=== PATIENT | female | born 1960 | race Caucasian/White ===

== ENCOUNTER 2016-10-22 17:25 | Emergency (ER) | payer OTHER ==
[~2016-10-22] VITALS: Ht 165.1 cm; Wt 77.1 kg
[2016-10-22] MEDS ORDERED: FAMOTIDINE 20 MG/2 ML VIAL IVP ONE (17:30)
[2016-10-22] MEDS ORDERED: methylPREDNISolone SOD SUCC PF 125 MG/2 ML VIAL. IV ONE (17:30)
[2016-10-22] MEDS ORDERED: diphenhydrAMINE 50 MG/ML VIAL IVP ONE (17:30)
--- NOTE | 2016-10-22 17:30 | NUR ---
pepcid was given IV per the left AC IV site not the rt --only one IV site was created.
--- NOTE | 2016-10-22 17:32 | PHYS DOC ---
Adult General Chief Complaint Chief Complaint: ALLERGIC REACTION HPI HPI Patient is a 55-year-old female brought to the ED by EMS with the complaint of allergic reaction. The patient felt wheezy and tight, her lips and inside of her mouth felt like they were itchy and swelling, she was sneezing, her throat felt like it was tightening. Her eyes were itching in the inside of her ears were itching. This all started just as she ate the last almond, she was eating almonds for a snack. She took a Benadryl and after 20-30 minutes was not getting any relief so she called 911. Paramedics administered epinephrine 0.3 mg IM, and a albuterol breathing treatment. Patient was feeling better by the time she arrived. Patient states she has never had a reaction like this before. 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 She saw an receiver stocker and ended up taking Zyrtec and Zantac each twice a day for a while, her symptoms got calms down and now she still takes one Zyrtec daily but no Zantac. They never really determined for sure what she was allergic to at that time. She does have a history of a seafood allergy determined by allergy testing but she has not eaten any seafood. Today she ate pancakes for breakfast, they had a late breakfast so she had not had lunch, just some almonds for a snack. 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 This was discovered because she was hospitalized with abdominal pain and sounds like she was given some prophylactic subcutaneous heparin, a few days later she developed a vasculitis and ended up in the ICU for 5 days. Review of Systems Review of Systems Constitutional: Denies fever or chills [] Eyes: Eyes were itchy at the onset of this episode HENT: Positive nasal congestion and itchy nose with this episode Respiratory: As in history of present illness Cardiovascular: Denies chest pain GI: Denies abdominal pain, nausea, vomiting, bloody stools or diarrhea [] Integument: Denies rash or skin lesions , no redness or urticaria Physical Exam Physical Exam Constitutional: Well developed, well nourished, alert, mentating normally, no stridor, no respiratory distress. She does appear slightly shaky and anxious. HENT: Normocephalic, atraumatic, bilateral external ears normal, no facial or oral swelling, oropharynx moist, no oral exudates, nose normal. [] Eyes: conjunctiva normal, no discharge. [] Neck: Normal range of motion, no stridor. [] Cardiovascular:Heart rate regular rhythm, no murmur [] Lungs & Thorax: Bilateral breath sounds clear to auscultation , good air movement throughout, no wheezing heard Skin: Warm, no erythema, no rash. No urticarial lesions. Slightly diaphoretic. Extremities: No tenderness, no cyanosis, no clubbing, ROM intact, no edema. [] Neurologic: Alert and oriented X 3, normal motor function, normal sensory function, no focal deficits noted. [] EKG EKG [] Radiology/Procedures Radiology/Procedures [] Course & Med Decision Making Course & Med Decision Making Pertinent Labs and Imaging studies reviewed. (See chart for details) 55-year-old female presented by EMS with what sounds like some type of allergic reaction/anaphylaxis. She has not had this before. She was treated by oral Benadryl at home, by EMS with epinephrine 0.3 mg IM and albuterol nebulized treatment. I ordered additional IV Benadryl, IV Pepcid, and IV Solu-Medrol on arrival. 1744 recheck patient. She has calmed down a little bit. She is mentating normally. Good color, skin is dry. She is not dyspneic. No stridor. No evidence of any rash, no wheezing. I advised the patient we will observe her in the ED for at least an hour. She is agreeable to that.1800 I turned over the patient at shift change to Dr. Mendoza, who will observe her and if she remains clear will be able to discharge her with appropriate medications and follow-up plan. --- I assumed care of the patient at the end of Dr. Jean's shift. Patient continued to improve with no recurrence of airway symptoms. She was resting comfortably throughout my care. She was observed for over 90 minutes. She was comfortable with discharge home. Gave prescriptions for EpiPen to use as needed for recurrence of anaphylactic symptoms. Also gave prescription for prednisone and advised every 6 hours use Benadryl and daily use of Pepcid for the next 5 days. Follow-up with receiver stocker or PCP within the next week. Return to the emergency department for severe shortness of breath, face/tongue/lip swelling, need to use EpiPen, any otherwise worsening condition. Discharged home in stable condition. Chery Mendoza MD [] Dragon Disclaimer Dragon Disclaimer This chart was dictated in whole or in part using Voice Recognition software in a busy, high-work load, and often noisy Emergency Department environment. It may contain unintended and wholly unrecognized errors or omissions. Departure Departure: Impression: Primary Impression: Allergic reaction Disposition: HOME, SELF-CARE Patient Instructions: Anaphylactic Reaction, [id number] Additional Instructions: You were seen in the emergency department today for allergic reaction. Symptoms improved with treatment here. It's not clear what caused this reaction. Please take prednisone for the next 5 days. Also take [id number] Benadryl every 6 hours and Pepcid daily. Follow-up with your receiver stocker within the next week if possible. Return to the emergency department for severe shortness of breath, face/tongue/lip swelling, any otherwise worsening condition. Scripts Epinephrine (EPINEPHRINE) 0.3 Mg/0.3 Ml Auto.injct 0.3 MG IJ 1X, #2 SYR Prov: CHERY MENDOZA MD 10/22/16 Prednisone (PREDNISONE) 20 Mg Tablet 20 MG PO BID for allergic reaction for 5 Days, #10 TAB Prov: ELAINE JEAN MD 10/22/16 ELAINE JEAN MD October 22, 2016 17:31 CHERY MENDOZA MD October 22, 2016 18:55
[2016-10-22] MEDS ORDERED: PRED20TA PO (18:16)
[2016-10-22] MEDS ORDERED: EPIN0.3A8 IJ (18:54)
[2016-10-22 19:05] VITALS: BP 119/69
--- NOTE | 2016-10-22 19:05 | NUR ---
IV catheter was discontinued with catheter intact and no complication--pressure dressing applied.
== END 2016-10-22 19:05 | disposition home or self-care (01) ==
LOC: ER 17:25
DX: T78.1XXA Other adverse food reactions, not elsewhere classified, initial encounter (principal); R06.2 Wheezing; X58.XXXA Exposure to other specified factors, initial encounter
CPT/HCPCS: 96374; 96375; 99284; J1200; J2930; S0028

== ENCOUNTER 2019-02-09 12:51 | Emergency (ER) | payer OTHER ==
[~2019-02-09 12:51] MED LIST: EPIN0.3A8 IJ; PRED20TA PO
[2019-02-09 13:00] VITALS: BP 172/92
[2019-02-09] MEDS ORDERED: IV NORMAL SALINE 1,000ML 1,000 ML IV ONE (13:15)
[2019-02-09] MEDS ORDERED: METOCLOPRAMIDE HCL 10 MG/2 ML VIAL. IV ONE (13:30)
[2019-02-09] MEDS ORDERED: diphenhydrAMINE 50 MG/ML VIAL IVP ONE (13:30)
[2019-02-09] MEDS ORDERED: PROCHLORPERAZINE 10 MG/2 ML VIAL. IV ONE (13:30)
--- NOTE | 2019-02-09 13:41 | ED.ADGEN ---
Past History Past Medical History: Migraines Past Surgical History: Appendectomy, Cholecystectomy, Tubal ligation Alcohol Use: None Drug Use: None Adult General Chief Complaint Chief Complaint Headache HPI HPI Patient is a 58-year-old female with history of chronic recurrent migraines who presents with typical left-sided retro-orbital headache beginning earlier today. Headache is described as throbbing in migrates posteriorly. It is rated moderate to severe and associated with light sensitivity, nausea and vomiting. Patient has taken Excedrin Migraine without relief. Denies known trigger. No recent illnesses, missed medications, or sleep changes. Patient's last migraine was a few weeks ago. States headaches are normally well controlled..[] Review of Systems Review of Systems Review symptoms as per history of present illness. All other review symptoms are negative. All other systems were reviewed and found to be within normal limits, except as documented in this note. Current Medications Current Medications Current Medications Medications (Trade) Dose Ordered Sig/Maame Start Time Stop Time Status Last Admin Dose Admin Diphenhydramine HCl (Benadryl) 50 mg 1X ONCE 02/09/19 13:30 02/09/19 13:31 DC 02/09/19 13:27 50 MG Metoclopramide HCl (Reglan Vial) 10 mg 1X ONCE 02/09/19 13:30 02/09/19 13:31 DC 02/09/19 13:27 10 MG Prochlorperazine Edisylate (Compazine) 10 mg 1X ONCE 02/09/19 13:30 02/09/19 13:31 DC 02/09/19 13:27 10 MG Sodium Chloride 1,000 ml @ 1,000 mls/hr 1X ONCE 02/09/19 13:15 02/09/19 14:14 DC 02/09/19 13:30 1,000 MLS/HR Allergies Allergies Allergies Coded Allergies Type Severity Reaction Last Updated Verified Iodinated Contrast Media - Oral and Allergy Intermediate 10/22/16 Yes heparin Allergy Mild 10/22/16 Yes codeine Adverse Reaction Intermediate 10/22/16 Yes Physical Exam Physical Exam Constitutional: Well developed, well nourished, moderate distress secondary to pain.. [] HENT: Normocephalic, atraumatic, bilateral external ears normal, oropharynx moist, no oral exudates, nose normal. [] Eyes: PERRLA, EOMI, conjunctiva normal, no discharge. [] Neck: Normal range of motion, no tenderness, supple. [] Cardiovascular:Heart rate regular rhythm, no murmur [] Lungs & Thorax: Bilateral breath sounds clear to auscultation [] Extremities: No tenderness. [] Neurologic: Alert and oriented X 3, normal motor function, normal sensory function, no focal deficits noted. [] Psychologic: Affect normal, judgement normal, mood normal. [] Current Patient Data Vital Signs Vital Signs Date Time Temp Pulse Resp B/P (MAP) Pulse Ox O2 Delivery O2 Flow Rate FiO2 02/09/19 13:00 77 18 93 Room Air Lab Results Laboratory Tests Test 02/09/19 13:24 White Blood Count 8.8 x10^3/uL (4.0-11.0) Red Blood Count 5.11 x10^6/uL (3.50-5.40) Hemoglobin 15.3 g/dL (12.0-15.5) Hematocrit 45.0 % (36.0-47.0) Mean Corpuscular Volume 88 fL (79-100) Mean Corpuscular Hemoglobin 30 pg (25-35) Mean Corpuscular Hemoglobin Concent 34 g/dL (31-37) Red Cell Distribution Width 13.4 % (11.5-14.5) Platelet Count 286 x10^3/uL (140-400) Neutrophils (%) (Auto) 68 % (31-73) Lymphocytes (%) (Auto) 23 % (24-48) L Monocytes (%) (Auto) 6 % (0-9) Eosinophils (%) (Auto) 2 % (0-3) Basophils (%) (Auto) 1 % (0-3) Neutrophils # (Auto) 6.0 x10^3uL (1.8-7.7) Lymphocytes # (Auto) 2.0 x10^3/uL (1.0-4.8) Monocytes # (Auto) 0.5 x10^3/uL (0.0-1.1) Eosinophils # (Auto) 0.2 x10^3/uL (0.0-0.7) Basophils # (Auto) 0.1 x10^3/uL (0.0-0.2) Sodium Level 141 mmol/L (136-145) Potassium Level 3.9 mmol/L (3.5-5.1) Chloride Level 103 mmol/L (98-107) Carbon Dioxide Level 29 mmol/L (21-32) Anion Gap 9 (6-14) Blood Urea Nitrogen 14 mg/dL (7-20) Creatinine 1.0 mg/dL (0.6-1.0) Estimated GFR (Cockcroft-Gault) 57.1 Glucose Level 103 mg/dL (70-99) H Calcium Level 9.0 mg/dL (8.5-10.1) EKG EKG ] Radiology/Procedures Radiology/Procedures [] Course & Med Decision Making Course & Med Decision Making Pertinent Labs and Imaging studies reviewed. (See chart for details) [Acute onset migraine headache without vomiting. Typical migraine cocktail initiated. Symptoms improved in the ED with treatment.] Final Impression Final Impression [#1 recurrent migraine headache] Dragon Disclaimer Dragon Disclaimer This electronic medical record was generated, in whole or in part, using a voice recognition dictation system. NICHOLAS CASTRO DO Feb 09, 2019 13:41
[2019-02-09 13:42] LABS: GFR 57.1; POTASSIUM 3.9 mmol/L (3.5-5.1)
[2019-02-09 13:43] LABS: BASO # 0.1 x10^3/uL (0.0-0.2); BASO % 1 % (0-3); EOS # 0.2 x10^3/uL (0.0-0.7); EOS % 2 % (0-3); HEMOGLOBIN 15.3 g/dL (12.0-15.5); LYMPH % 23 % (24-48); MEAN CORPUSCULAR HEMOGLOBIN 30 pg (25-35); MEAN CORPUSCULAR HGB CONC 34 g/dL (31-37); MEAN CORPUSCULAR VOLUME 88 fL (79-100); MONO # 0.5 x10^3/uL (0.0-1.1); MONO % 6 % (0-9); NEUT % 68 % (31-73); PLATELET COUNT 286 x10^3/uL (140-400); RED BLOOD COUNT 5.11 x10^6/uL (3.50-5.40); RED CELL DISTRIBUTION WIDTH 13.4 % (11.5-14.5); WHITE BLOOD COUNT 8.8 x10^3/uL (4.0-11.0)
== END 2019-02-09 15:05 | disposition home or self-care (01) ==
LOC: ER 12:51
DX: G43.909 Migraine, unspecified, not intractable, without status migrainosus (principal); R11.2 Nausea with vomiting, unspecified; Z88.5 Allergy status to narcotic agent; Z88.8 Allergy status to other drugs, medicaments and biological substances; Z91.041 Radiographic dye allergy status
CPT/HCPCS: 36415; 80048; 85025; 96361; 96374; 96375; 99285; J0780; J1200; J2765; J7030

== ENCOUNTER 2019-07-23 12:50 | Emergency (ER) | payer OTHER ==
[~2019-07-23] VITALS: Ht 165.1 cm; Wt 79.5 kg
[2019-07-23] MEDS ORDERED: methylPREDNISolone SOD SUCC PF 125 MG/2 ML VIAL. IV ONE (13:15)
[2019-07-23] MEDS ORDERED: diphenhydrAMINE 50 MG/ML VIAL IVP ONE (13:15)
[2019-07-23] MEDS ORDERED: FAMOTIDINE 20 MG/2 ML VIAL IVP ONE (13:15)
[2019-07-23] MEDS ORDERED: IPRATRPIUM/ALBUTEROL 0.5/2.5MG 3 ML NEBU. NEB ONE (14:00)
[2019-07-23 15:22] VITALS: BP 132/79
--- NOTE | 2019-07-23 15:51 | PHYS DOC ---
Past History Past Medical History: No Pertinent History Past Surgical History: Appendectomy, Cholecystectomy Alcohol Use: None Drug Use: None Adult General Chief Complaint Chief Complaint: ALLERGIC REACTION HPI HPI Patient is a 58-year-old female who presented to ER today for evaluation of allergic reaction to the medication she was given today in her doctor office. Patient went to see her doctor today for annual routine allergy shot. Patient was given the shot in the clinic, then she was arriving to see her dentist, on the way to her dentist clinic , she started having trouble breathing , feel like her throat is swelling up , itching sensation on her trunk so she came here for evaluation. Review of Systems Review of Systems Constitutional: Denies fever or chills [] Eyes: Denies change in visual acuity, redness, or eye pain [] HENT: Denies nasal congestion or sore throat [] Respiratory: Denies cough , positive for shortness of breath [] Cardiovascular: No additional information not addressed in HPI [] GI: Denies abdominal pain, nausea, vomiting, bloody stools or diarrhea [] : Denies dysuria or hematuria [] Musculoskeletal: Denies back pain or joint pain [] Integument: Denies rash or skin lesions . Positive for itching. Neurologic: Denies headache, focal weakness or sensory changes [] Endocrine: Denies polyuria or polydipsia [] All other systems were reviewed and found to be within normal limits, except as documented in this note. Current Medications Current Medications Current Medications Medications (Trade) Dose Ordered Sig/Maame Start Time Stop Time Status Last Admin Dose Admin Albuterol/ Ipratropium (Duoneb) 3 ml 1X ONCE 07/23/19 14:00 07/23/19 14:02 DC 07/23/19 14:06 3 ML Diphenhydramine HCl (Benadryl) 50 mg 1X ONCE 07/23/19 13:15 07/23/19 13:16 DC 07/23/19 13:02 50 MG Epinephrine HCl (EPINEPHrine AMPULE) 0.3 mg 1X ONCE 07/23/19 13:30 07/23/19 13:31 DC 07/23/19 13:34 0.3 MG Famotidine (Pepcid Vial) 20 mg 1X ONCE 07/23/19 13:15 07/23/19 13:16 DC 07/23/19 13:02 20 MG Methylprednisolone Sodium Succinate (SOLU-Medrol 125MG VIAL) 125 mg 1X ONCE 07/23/19 13:15 07/23/19 13:16 DC 07/23/19 13:02 125 MG Allergies Allergies Allergies Coded Allergies Type Severity Reaction Last Updated Verified almond Allergy Severe Anaphylaxis 07/23/19 Yes Iodinated Contrast Media Allergy Intermediate 10/22/16 Yes heparin Allergy Mild 10/22/16 Yes codeine Adverse Reaction Intermediate 10/22/16 Yes Physical Exam Physical Exam Constitutional: Well developed, well nourished, no acute distress, non-toxic appearance. [] HENT: Normocephalic, atraumatic, bilateral external ears normal, oropharynx [address], no oral exudates, nose normal. Mild swelling of the tip of her tongue. Eyes: PERRLA, EOMI, conjunctiva normal, no discharge. [] Neck: Normal range of motion, no tenderness, supple, no stridor. [] Cardiovascular:Heart rate regular rhythm, no murmur [] Lungs & Thorax: Bilateral breath sounds clear to auscultation [] Abdomen: Bowel sounds normal, soft, no tenderness, no masses, no pulsatile masses. [] Skin: Warm, dry, no erythema, no rash. [] Back: No tenderness, no CVA tenderness. [] Extremities: No tenderness, no cyanosis, no clubbing, ROM intact, no edema. [] Neurologic: Alert and oriented X 3, normal motor function, normal sensory function, no focal deficits noted. [] Psychologic: Affect normal, judgement normal, mood normal. [] Current Patient Data Vital Signs Vital Signs Date Time Temp Pulse Resp B/P (MAP) Pulse Ox O2 Delivery O2 Flow Rate FiO2 07/23/19 15:22 104 18 132/79 (96) 91 07/23/19 14:08 Room Air EKG EKG [] Radiology/Procedures Radiology/Procedures [] Course & Med Decision Making Course & Med Decision Making Pertinent Labs and Imaging studies reviewed. (See chart for details) He was given medication in the ER, she feels much better, denied shortness of air, able to swallow without any problem. will discharge her home. She already has two Epipen at home. She will need to follow up with her allergy doctor this week. Dragon Disclaimer Dragon Disclaimer This electronic medical record was generated, in whole or in part, using a voice recognition dictation system. Departure Departure: Impression: Primary Impression: Allergic reaction Disposition: 01 HOME, SELF-CARE Condition: STABLE Referrals: BARBER SWANN MD (PCP) please call your doctor for follow up tomorrow. Patient Instructions: Allergies, Generic Additional Instructions: Thank you for visiting our Emergency Department. We appreciate you trusting us with your care. If any additional problems come up don't hesitate to return to visit us. Please follow up with your primary care provider so they can plan additional care if needed and know about the problem that you had. If symptoms worsen come back to the Emergency Department. Any concerning symptoms that start such as chest pain, shortness of air, weakness or numbness on one side of the body, running high fevers or any other concerning symptoms return to the ER. Scripts Famotidine (PEPCID) 20 Mg Tablet 20 MG PO DAILY for allergy for 7 Days, #7 TAB Prov: DEEP BISWAS DO 07/23/19 Prednisone (PREDNISONE) 20 Mg Tablet 1 TAB PO DAILY for allergy, #7 TAB Prov: DEEP BISWAS DO 07/23/19 DEEP BISWAS DO Jul 23, 2019 15:51
[2019-07-23] MEDS ORDERED: PRED20TA PO (15:59)
[2019-07-23] MEDS ORDERED: FAMO-63 PO (15:59)
== END 2019-07-23 16:05 | disposition home or self-care (01) ==
LOC: ER 12:50
DX: T78.40XA Allergy, unspecified, initial encounter (principal); Z91.018 Allergy to other foods; Z88.5 Allergy status to narcotic agent; Z91.041 Radiographic dye allergy status; Z90.49 Acquired absence of other specified parts of digestive tract
CPT/HCPCS: 94640; 96372; 96374; 96375; 99284; J0171; J1200; J2930; J3490; J7620

== ENCOUNTER 2020-12-30 17:57 | Emergency (ER) | payer OTHER ==
[~2020-12-30] VITALS: Ht 165.1 cm; Wt 77.2 kg
[~2020-12-30 17:57] MED LIST changes: +FAMO-63 PO
[2020-12-30] MEDS ORDERED: ONDANSETRON PF 4 MG/2 ML VIAL. IVP ONE (18:30)
[2020-12-30] MEDS ORDERED: PROCHLORPERAZINE 10 MG/2 ML VIAL. IV ONE (18:30)
[2020-12-30] MEDS ORDERED: diphenhydrAMINE 50 MG/ML VIAL IVP ONE (18:30)
[2020-12-30] MEDS ORDERED: KETOROLAC 15 MG/ML VIAL. IVP ONE (18:30)
--- NOTE | 2020-12-30 18:33 | PHYS DOC ---
Past History Past Medical History: No Pertinent History Past Surgical History: Appendectomy, Cholecystectomy, Tonsillectomy, Other Additional Past Surgical Histo: knee scope; bladder sling Alcohol Use: None Drug Use: None Adult General Chief Complaint Chief Complaint: HEADACHE HPI HPI Patient is a 60-year-old female with past medical history significant for migraines who presents to the emergency department with a chief complaint of mi graine headache. States that it started about 3 hours ago when she was driving relatively acutely, 7 out of 10, whole head, dull and achy in nature with some mild nausea but no vomiting and some photophobia but no phonophobia. States she gets about 4 5 migraines a month. States she did take her Imitrex and Excedrin which did not seem to help much. Denies any recent traumas, travels, illnesses, fevers, chest pain, shortness of breath, abdominal pain, vomiting, dysuria, hematuria or blood in the stool. Denies any numbness/weakness/tingling. Denies any trouble sitting, standing or walking. Denies use of blood thinners. Review of Systems Review of Systems Review of systems otherwise unremarkable except noted in HPI Current Medications Current Medications Current Medications Medications (Trade) Dose Ordered Sig/Maame Start Time Stop Time Status Last Admin Dose Admin Diphenhydramine HCl (Benadryl) 50 mg 1X ONCE 12/30/20 18:30 12/30/20 18:31 UNV Ketorolac Tromethamine (Toradol 15mg Vial) 15 mg 1X ONCE 12/30/20 18:30 12/30/20 18:31 UNV Ondansetron HCl (Zofran) 8 mg 1X ONCE 12/30/20 18:30 12/30/20 18:31 UNV Prochlorperazine Edisylate (Compazine) 10 mg 1X ONCE 12/30/20 18:30 12/30/20 18:31 UNV Allergies Allergies Allergies Coded Allergies Type Severity Reaction Last Updated Verified almond Allergy Severe Anaphylaxis 12/30/20 Yes Iodinated Contrast Media Allergy Intermediate 12/30/20 Yes heparin Allergy Mild 12/30/20 Yes codeine Adverse Reaction Intermediate 12/30/20 Yes Physical Exam Physical Exam Constitutional: Well developed, well nourished, no acute distress, non-toxic appearance. [] HENT: Normocephalic, atraumatic, tympanic membranes normal, oropharynx moist, no oral exudates, nose normal. [] Eyes: PERRLA, EOMI, conjunctiva normal, no discharge. [] Neck: Normal range of motion, no tenderness, supple, no stridor. [] Cardiovascular:Heart rate regular rhythm, no murmur [] Lungs & Thorax: Bilateral breath sounds clear to auscultation [] Abdomen: soft, no tenderness, no masses, no pulsatile masses. [] Skin: Warm, dry, no erythema, no rash. [] Back: No tenderness, no CVA tenderness. [] Extremities: No tenderness, ROM intact, no edema. [] Neurologic: Alert and oriented X 3, no focal deficits noted. [] Psychologic: Affect normal, judgement normal, mood normal. [] Current Patient Data Vital Signs Vital Signs Date Time Temp Pulse Resp B/P (MAP) Pulse Ox O2 Delivery O2 Flow Rate FiO2 12/30/20 18:09 98.1 80 18 149/108 97 Room Air EKG EKG Rate of 76, QRS of 74, QTc of 430, no STEMI. [] Radiology/Procedures Radiology/Procedures [] Comparisons: None FINDINGS: No focal parenchymal lesion or hemorrhage is identified. There is no midline shift or sulcal effacement. No acute vascular territory infarction is identified. Renee-white distinction is preserved. The ventricular system is within normal limits without compression hydrocephalus. The basal cisterns are well maintained. The visualized portions of the paranasal sinuses and mastoid air cells are well- pneumatized. No acute fractures. IMPRESSION: No acute intracranial abnormality. Electronically signed by: Junaid Onofre MD (12/30/2020 6:44 PM) [facility]ITALFrancisco Javier Heart Score C/O Chest Pain: No Risk Factors: Risk Factors: DM, Current or recent (<one month) smoker, HTN, HLP, family history of CAD, obesity. Risk Scores: Risk Factors: DM, Current or recent (<one month) smoker, HTN, HLP, family hist ory of CAD, obesity. Course & Med Decision Making Course & Med Decision Making Patient is a 60-year-old female who presents with migraine headache Vital signs notable for hypertension. Physical exam noted above. Patient p laced on the monitor with IV access established. Started on IV fluid resuscitation and given headache cocktail. EKG noted above with no STEMI. Troponin normal. CT of the head not concerning. On reevaluation patient stated she was feeling much better and was ready to be discharged home. Advised on further symptom control at home. Advised to follow up in the morning with her primary care physician. Gave return precautions to the ED. Patient grateful, verbalized understanding and agreed with plan of discharge. Dragon Disclaimer Dragon Disclaimer This electronic medical record was generated, in whole or in part, using a voice recognition dictation system. Departure Departure: Impression: Primary Impression: Migraine headache Disposition: HOME / SELF CARE / HOMELESS Condition: GOOD Referrals: BARBER SWANN MD (PCP) Patient Instructions: Migraine Headache Additional Instructions: Thank you for coming into the emergency department tonight and allowing us to take care of you. Please read all the attached information very carefully to go back over what we discussed. Please continue your migraine regimen at home. Please call your primary care physician in the morning to update on ED visit. Please come back to the ED with new or concerning symptoms as discussed. CARMEN VELAZCO MD Dec 30, 2020 18:33
--- NOTE | 2020-12-30 18:46 | RAD ---
Exam: CT head INDICATION: Acute, headache TECHNIQUE: Sequential axial images through the head were obtained without the administration of IV co ntrast. Exposure: One or more of the following in the visualized dose reduction techniques were utilized for this examination: 1. Automated exposure control 2. Adjustment of the MA and/or KV according to patient size 3. Use of iterative of reconstructive technique Comparisons: None FINDINGS: No focal parenchymal lesion or hemorrhage is identified. There is no midline shift or sulcal effaceme nt. No acute vascular territory infarction is identified. Renee-white distinction is preserved. The ventricular system is within normal limits without compression hydrocephalus. The basal cisterns are well maintained. The visualized portions of the paranasal sinuses and mastoid air cells are well-pneumatized. No acute fractures. IMPRESSION: No acute intracranial abnormality. Electronically signed by: Junaid Onofre MD (12/30/2020 6:44 PM) [facility]
[2020-12-30 19:54] VITALS: BP 154/86
--- NOTE | 2020-12-30 21:14 | EKG ---
[address] [address] Test Date: 2020-12-30 Test Time: 18:39:41 Pat Name: REJI MCCRAY Department: Room: Gender: F Psych Therapist: CLAUDIA : [id number] Requested By: CARMEN VELAZCO Order Number: [id number] Reading MD: Measurements Intervals [place] Rate: 76 P: 47 [place]: 150 QRS: 41 QRSD: 74 T: 51 QT: 378 QTc: 430 Interpretive Statements SINUS RHYTHM NORMAL ECG RI6.02 No previous ECG available for comparison
== END 2020-12-30 19:58 | disposition home or self-care (01) ==
LOC: ER 17:57
DX: G43.909 Migraine, unspecified, not intractable, without status migrainosus (principal); Z91.018 Allergy to other foods; Z91.041 Radiographic dye allergy status; Z88.5 Allergy status to narcotic agent; Z88.8 Allergy status to other drugs, medicaments and biological substances
CPT/HCPCS: 36415; 70450; 84484; 93005; 96374; 96375; 99285; J0780; J1200; J1885; J2405